=== PATIENT | female | born 1955 | race Caucasian/White ===

== ENCOUNTER 2017-11-30 10:15 | Emergency (ER) | payer BC ==
[~2017-11-30] VITALS: Ht 162.6 cm; Wt 54.9 kg
[~2017-11-30 10:15] MED LIST: COL100 PO; FLA500 PO; LAC PO; LEVOFLOXACIN500 M1 PO; PRI20 PO; SYNTHROID0.05 MG PO; ZOFRAN ODT4 MG SL
[2017-11-30 10:19] VITALS: Ht 162.6 cm; Wt 54.9 kg
[2017-11-30 11:25] LABS: CALCIUM 10.1 mg/dL (8.5-10.1); CARBON DIOXIDE 29.8 mmol/L (21-32); CHLORIDE SERUM 102 mmol/L (98-107); CREATININE SERUM 0.9 mg/dL (0.6-1.0); GFR1 > 60 mL/min; GLUCOSE SERUM 104 mg/dL (74-106); POTASSIUM SERUM 3.9 mmol/L (3.5-5.1); SODIUM SERUM 140 mmol/L (136-145)
[2017-11-30 11:27] LABS: BASOPHIL % 0.1 % (0-2); PLATELET COUNT 294 x10^3mcL (130-400)
[2017-11-30 11:29] LABS: ALKALINE PHOSPHATASE 58 U/L (46-116); ALT/SGPT 49 U/L (14-59); AST/SGOT 40 U/L (15-37); BILIRUBIN TOTAL 0.46 mg/dL (0.20-1.00); TOTAL PROTEIN, SERUM 7.7 g/dL (6.4-8.2)
[2017-11-30 12:02] LABS: RED CELL DISTRIBUTION WIDTH 15.5 % (11.5-14.5)
[2017-11-30 12:33] VITALS: BP 127/84
== END 2017-11-30 12:33 | disposition home or self-care (01) ==
LOC: ED 10:15
PROVIDERS: Emergency Medicine
DX: L03.119 Cellulitis of unspecified part of limb (principal)
CPT/HCPCS: 36415

== ENCOUNTER 2017-12-29 09:38 | Emergency (ER) | payer BC ==
[~2017-12-29] VITALS: Ht 162.6 cm; Wt 54.4 kg
[2017-12-29 09:47] VITALS: Ht 162.6 cm; Wt 54.4 kg
[2017-12-29 11:07] LABS: BASOPHIL % 0.3 % (0-2); PLATELET COUNT 272 x10^3mcL (130-400)
[2017-12-29 11:10] LABS: RED CELL DISTRIBUTION WIDTH 16.8 % (11.5-14.5)
[2017-12-29 11:14] LABS: CALCIUM 9.2 mg/dL (8.5-10.1); CARBON DIOXIDE 27.6 mmol/L (21-32); CHLORIDE SERUM 102 mmol/L (98-107); CREATININE SERUM 0.8 mg/dL (0.6-1.0); GFR1 > 60 mL/min; GLUCOSE SERUM 106 mg/dL (74-106); POTASSIUM SERUM 3.3 mmol/L (3.5-5.1); SODIUM SERUM 135 mmol/L (136-145)
[2017-12-29 11:19] LABS: ALBUMIN 4.1 g/dL (3.4-5.0); ALKALINE PHOSPHATASE 63 U/L (46-116); ALT/SGPT 46 U/L (14-59); AST/SGOT 34 U/L (15-37); BILIRUBIN TOTAL 0.4 mg/dL (0.20-1.00); MAGNESIUM 1.7 mg/dL (1.8-2.4); TOTAL PROTEIN, SERUM 7.8 g/dL (6.4-8.2)
[2017-12-29 11:45] VITALS: BP 141/90
== END 2017-12-29 11:45 | disposition home or self-care (01) ==
LOC: ED 09:38
PROVIDERS: Emergency Medicine
DX: T82.898A Other specified complication of vascular prosthetic devices, implants and grafts, initial encounter (principal); R31.9 Hematuria, unspecified
CPT/HCPCS: 36415

== ENCOUNTER 2019-06-29 04:26 | Emergency (ER) | payer OTHER, MEDICARE ==
[~2019-06-29] VITALS: Ht 162.6 cm; Wt 53.8 kg
[2019-06-29 04:50] VITALS: BP 106/76
== END 2019-06-29 04:50 | disposition home or self-care (01) ==
LOC: ED 04:26
DX: R21 Rash and other nonspecific skin eruption (principal); L29.9 Pruritus, unspecified; E03.9 Hypothyroidism, unspecified; Z85.048 Personal history of other malignant neoplasm of rectum, rectosigmoid junction, and anus

== ENCOUNTER 2019-07-06 13:36 | Inpatient (IN) | payer OTHER, MEDICARE ==
[~2019-07-06] VITALS: Ht 162.6 cm; Wt 52.3 kg
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
[2019-07-06 14:44] LABS: CALCIUM 9.4 mg/dL (8.5-10.1); CARBON DIOXIDE 31.4 mmol/L (21-32); CREATININE SERUM 1.1 mg/dL (0.6-1.0); POTASSIUM SERUM 3.9 mmol/L (3.5-5.1)
[2019-07-06 14:45] LABS: BASOPHIL % 0.3 % (0-2); PLATELET COUNT 276 x10^3mcL (130-400); RED CELL DISTRIBUTION WIDTH 13.4 % (11.5-14.5)
[2019-07-06 14:49] LABS: ALBUMIN 3.8 g/dL (3.4-5.0); BILIRUBIN TOTAL 0.6 mg/dL (0.20-1.00); TOTAL PROTEIN, SERUM 7.4 g/dL (6.4-8.2)
[2019-07-06 15:00] LABS: FREE T4 1.08 ng/dL (0.76-1.46); FREE THYROXINE INDEX 3.3 ug/dL (1.4-4.5); T4(THYROXINE) 8.8 ug/dL (4.7-13.3)
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
--- NOTE | 2019-07-06 15:56 | NUR ---
CORRECTION. 3RD AND 4TH DIGIT
[2019-07-06] MEDS ORDERED: TRAMADOL HCL50 MG PO (17:16)
[2019-07-06] MEDS ORDERED: AMBIEN10 MG PO (17:17)
[2019-07-06] MEDS ORDERED: LORAZEPAM0.5 MG PO (17:17)
[2019-07-06] MEDS ORDERED: SYNTHROID0.075 MG PO (17:19)
[2019-07-06] MEDS ORDERED: NATURE'S BLEND500 MG PO (17:20)
[2019-07-06] MEDS ORDERED: CRESTOR10 M1 PO (17:20)
[2019-07-06] MEDS ORDERED: OSTERA TABLET1 EACH PO (17:20)
--- NOTE | 2019-07-06 17:40 | NUR ---
REPORT GIVEN TO ANTONIO HUTCHINSON ON MS/T FOR FURTHER CARE OF PT
[2019-07-06 17:50] VITALS: BP 139/76
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
--- NOTE | 2019-07-06 18:01 | NUR ---
PT HAS DRESSING ON THE RIGHT 3RD-4TH FINGERS, CDI. PT STATED THAT SHE DOES NOT WANT THE DRESSING TO BE TOUCHED AT THIS TIME ER JUST APPLIED OINTMENT.
[2019-07-06 18:09] VITALS: BP 117/79
[2019-07-06 18:16] VITALS: Ht 162.6 cm; Wt 52.3 kg
--- NOTE | 2019-07-06 19:29 | NUR ---
LATE ENTRY, 1800: PATIENT VISUALIZED, IN NO ACUTE DISTRESS WILL CONTINUE TO MONITOR.
--- NOTE | 2019-07-06 19:35 | NUR ---
PT RECEIVED A/O X4, ABLE TO MAKE NEEDS KNOWN, SITTING UP IN BED AND WATCHING TV. TELE #18, HR-76, PT DENIES ANY CP/PRESSURE. PULSES PALPABLE, NO EDEMA PRESENT. BREATHING IS EVEN AND UNLABORED ON RA, NO RESP DISTRESS NOTED. ABD SOFT AND FLAT, BOWEL TONES ACTIVE X4 QUAD, COLOSTOMY IN PLACE TO LLQ, PINK STOMA NOTED, NO DRAINAGE OBSERVED. VOIDS FREELY, BRP. GENERALIZED WEAKNESS, AMBULATORY. SKIN IS WARM AND DRY, INTACT. PT DENIES HAVING ANY PAIN AT THIS TIME. IV TO LFA, PATENT AND INTACT, SITE WNL. NO ACUTE DISTRESS NOTED. BED IN LOWEST SETTING, SIDE RAILS UP X2, CALL LIGHT WITHIN REACH. WILL CONT TO MONITOR.
--- NOTE | 2019-07-06 19:38 | NUR ---
REPORT GIVEN TO WORKPLACE REHABILITATION OFFICER NURSE, CARE ENDORSED.
--- NOTE | 2019-07-06 19:42 | NUR ---
PT C/O ANXIETY, ATIVAN PO GIVEN ORDERED PER EMAR. NO ACUTE DISTRESS NOTED. WILL CONT TO MONITOR.
[2019-07-06 19:55] LABS: IRON 85 ug/dL (50-170); TOTAL IRON BINDING CAPACITY 254 ug/dL (250-450)
[2019-07-06 20:12] LABS: RED BLOOD CELLS 4.02 M/mm3 (4.10-5.10)
[2019-07-06 20:36] VITALS: BP 109/61
--- NOTE | 2019-07-07 01:00 | NUR ---
PT RESTING IN BED WITH EYES CLOSED, BUT IS EASILY AROUSABLE. BREATHING IS EVEN AND UNLABORED, NO RESP DISTRESS NOTED. PT DENIES HAS ANYTHING PAIN AT THIS TIME. IVF INFUSING WELL, SITE WNL. NO ACUTE DISTRESS NOTED. CALL LIGHT WITHIN REACH. WILL CONT TO MONITOR.
--- NOTE | 2019-07-07 05:20 | NUR ---
PT SLEPT WELL THROUGHOUT THE EVENING. BREATHING IS EVEN AND UNLABORED, NO RESP DISTRESS NOTED. PT DENIES HAVING ANY PAIN AT THIS TIME. PT PENDING CT CHEST, ABD+PELVIS. PER MALGORZATA IN CT, WILL BE ABLE TO DO CT IN THE AM. NO ACUTE CHANGES ENCOUNTERED DURING SHIFT. ALL NEEDS MET AND ANTICIPATED. CALL LIGHT WITHIN REACH. WILL ENDORSE CARE TO AM NURSE.
[2019-07-07 06:13] LABS: PLATELET COUNT 225 x10^3mcL (130-400); RED CELL DISTRIBUTION WIDTH 13.5 % (11.5-14.5)
[2019-07-07 06:20] LABS: CALCIUM 8.5 mg/dL (8.5-10.1); CARBON DIOXIDE 31.3 mmol/L (21-32); CHLORIDE SERUM 104 mmol/L (98-107); CREATININE SERUM 0.8 mg/dL (0.6-1.0); GFR1 > 60 mL/min; GLUCOSE SERUM 98 mg/dL (74-106); POTASSIUM SERUM 4.8 mmol/L (3.5-5.1); SODIUM SERUM 141 mmol/L (136-145)
[2019-07-07 06:26] VITALS: BP 91/50
--- NOTE | 2019-07-07 07:10 | NUR ---
RECEIVED PT FROM NIGHT NURSE. PT IS LAYING DOWN IN BED WITH HOB UP RESTING. PT LOOKS TO BE IN NO ACUTE DISTRESS AT THIS TIME AND DENIES ANY PAIN. IV SITE PATENT WITH NO SIGNS OF ERYTHEMA OR SWELLING. TELE MONITOR PRESENT. PT INFORMED PT BEING NPO FOR CT WITH CONTRAST, PT VERBALIZED UNDERSTANDING. CALL LIGHT WITHIN REACH. WILL CONTINUE TO MONITOR.
--- NOTE | 2019-07-07 07:35 | NUR ---
PT AWAITING CT SCAN WITH IV CONTRAST. SHEET METAL PRODUCTION WORKER MADE AWARE OF 20g IV ACCESS. PER TECH, WILL TELETYPEWRITER OPERATOR PT VIA WHEELCHAIR. INSTRUCTED PT TO REMAIN NPO UNTIL AFTER CT SCAN, PT VERBALIZES UNDERSTANDING; NPO SIGN POSTED. PT IN NO ACUTE DISTRESS. CONTINUITY OF CARE ENDORSED TO AM NURSE. ALL QUESTIONS AND CONCERNS ADDRESSED.
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
[2019-07-07 08:54] VITALS: BP 101/50
[2019-07-07 09:36] LABS: MONOCYTE 14 % (0-7); SEGMENTED NEUTROPHILS 66 % (37-75)
[2019-07-07 09:37] LABS: rbc morphology (normal/abnorm) NORMAL (NORMAL)
[2019-07-07 09:38] LABS: PLATELET MORPHOLOGY NORMAL
[2019-07-07 11:22] LABS: microscopic required? NO
[2019-07-07 11:31] LABS: T3 TOTAL 1.1 ng/mL
[2019-07-07 12:47] LABS: UA SPECIFIC GRAVITY 1.015 (1.005-1.035); urine erythrocyte NEGATIVE (NEGATIVE)
[2019-07-07 12:56] LABS: AMPHETAMINE QUAL UR NONE DETECTED (See below)
[2019-07-07 13:29] VITALS: BP 116/61
--- NOTE | 2019-07-07 15:11 | NUR ---
IV TO LEFT FOREARM IS SWOLLEN AND PT STATES IS PAINFUL WHEN BEING FLUSHED. NO ERYTHEMA NOTED TO IV SITE. PT HAS ADDITIONAL IV TO RIGHT FOREARM. WILL REMOVE IV
--- NOTE | 2019-07-07 15:12 | NUR ---
ECHO BEING PERFORMED AT BEDSIDE.
--- NOTE | 2019-07-07 16:00 | NUR ---
PT COMPLAINING OF RECTAL PAIN 06/02. PT REQUESTING TO HAVE TRAMADOL AT THIS TIME TO ASSIST WITH THE PAIN. WILL MEDICATE ACCORDING TO EMAR.
[2019-07-07 17:27] VITALS: BP 110/66
--- NOTE | 2019-07-07 18:57 | NUR ---
PT IS LAYING DOWN IN BED WITH HOB UP RESTING. PT LOOKS TO BE IN NO ACUTE DISTRESS AT THIS TIME AND DENIES ANY PAIN. RESPIRATIONS EVEN AND UNLABORED ON ROOM AIR. IV SITE PATENT WITH NO SIGNS OF ERYTHEMA OR SWELLING WITH IV FLUIDS INFUSING. COLOSTOMY TO LLQ. TELE MONITOR PRESENT SHOWING NSR. CALL LIGHT WITHIN REACH. WILL ENDORSE TO ONCOMING SHIFT.
--- NOTE | 2019-07-07 19:15 | NUR ---
PT RECEIVED A/O X4, ABLE TO MAKE NEEDS KNOWN, SITTING UP IN BED AND WATCHING TV. TELE #18, HR-79, PT DENIES ANY CP/PRESSURE. PT'S HR MAY INCREASE TO 102-140s WHEN AMBULATING, DR BANKS MADE AWARE BY AM NURSE. PULSES PALPABLE, NO EDEMA PRESENT. BREATHING IS EVEN AND UNLABORED ON RA, NO RESP DISTRESS NOTED. ABD SOFT AND FLAT, BOWEL TONES ACTIVE X4 QUAD, COLOSTOMY IN PLACE TO LLQ, PINK STOMA NOTED, NO DRAINAGE OBSERVED. VOIDS FREELY, BRP. GENERALIZED WEAKNESS, AMBULATORY. SKIN IS WARM AND DRY, INTACT. PT DENIES HAVING ANY PAIN AT THIS TIME. IV TO RFA, PATENT AND INTACT, SITE WNL. NO ACUTE DISTRESS NOTED. BED IN LOWEST SETTING, SIDE RAILS UP X2, CALL LIGHT WITHIN REACH. WILL CONT TO MONITOR.
[2019-07-07 20:18] VITALS: BP 91/57
--- NOTE | 2019-07-07 21:50 | NUR ---
FOLLOWED UP WITH [employer] MANAG[employer] SPECIALIST REGARDING PT'S CT CHEST, ABD+PELVIS WITH IV CONTRAST. PER TECH, CT WAS CANCELLED BY DR NOYOLA. UPDATED DR CANTU ABOUT CT, NO NEW ORDERS AT THIS TIME.
--- NOTE | 2019-07-08 01:30 | NUR ---
ROUNDS MADE. PT RESTING IN BED WITH EYES CLOSED, BUT IS EASILY AROUSABLE. BREATHING IS EVEN AND UNLABORED, NO RESP DISTRESS NOTED. NO S/S OF PAIN NOTED. NO ACUTE DISTRESS OBSERVED. IVF INFUSING WELL, SITE WNL. CALL LIGHT WITHIN REACH. WILL CONT TO MONITOR.
--- NOTE | 2019-07-08 05:16 | NUR ---
PT SLEPT WELL THROUGHOUT THE EVENING. NO ACUTE CHANGES ENCOUNTERED DURING SHIFT. ALL NEEDS MET AND ANTICIPATED. PT COMPLIANT WITH NURSING CARE. PT DENIES HAVING ANY PAIN AT THIS TIME. IV TO RFA INTACT. CALL LIGHT WITHIN REACH. WILL ENDORSE CARE TO AM NURSE.
[2019-07-08 06:21] LABS: PLATELET COUNT 188 x10^3mcL (130-400); RED CELL DISTRIBUTION WIDTH 13.9 % (11.5-14.5)
[2019-07-08 06:34] LABS: CALCIUM 8.1 mg/dL (8.5-10.1); CARBON DIOXIDE 28.8 mmol/L (21-32); CHLORIDE SERUM 108 mmol/L (98-107); CREATININE SERUM 0.8 mg/dL (0.6-1.0); GFR1 > 60 mL/min; GLUCOSE SERUM 87 mg/dL (74-106); MAGNESIUM 1.7 mg/dL (1.8-2.4); PHOSPHOROUS 2.7 mg/dL (2.5-4.9); POTASSIUM SERUM 4.6 mmol/L (3.5-5.1); SODIUM SERUM 142 mmol/L (136-145)
[2019-07-08 07:03] VITALS: BP 100/48
--- NOTE | 2019-07-08 07:42 | NUR ---
PT IN NO ACUTE DISTRESS. CONTINUITY OF CARE ENDORSED TO THERESE HUTCHINSON. ALL QUESTIONS AND CONCERNS ADDRESSED.
[2019-07-08 08:01] LABS: BAND NEUTROPHIL 0 % (0-10); MONOCYTE 36 % (0-7); SEGMENTED NEUTROPHILS 70 % (37-75)
[2019-07-08 08:04] LABS: rbc morphology (normal/abnorm) ABNORMAL (NORMAL)
[2019-07-08] MEDS ORDERED: ATIVAN2 MG PO (08:18)
[2019-07-08 08:42] VITALS: BP 109/40
--- NOTE | 2019-07-08 08:59 | NUR ---
RECEIVED PATIENT RESTING IN BED, WATCHING TV. NO ACUTE DISTRESS NOTED. PATIENT DENIES CHEST PAIN, PATIENT ON TELE MONITOR. PATIENT DENIES SOB, ON ROOM AIR. DENIES HEADACHE, AND DIZZINESS. COLOSTOMY NOTED TO LEFT UPPER QUADRANT, PINK STOMA NOTED. PATIENT AMBULATORY WITH NO ASSIST. NS IV INFUSING TO RFA AT 60ML/HR, IV SITE CDI & PATENT, NO S/S OF INFILTRATION. CALL LIGHT WITHIN REACH, BED IN LOW POSITION, WILL CONTINUE TO MONITOR.
--- NOTE | 2019-07-08 10:00 | NUR ---
DR. NOYOLA AWARE PATIENT MAG WAS 1.7, AND WBC WAS 2.9. NO FURTHER ORDERS AT THIS TIME, WILL CONTINUE TO MONITOR.
--- NOTE | 2019-07-08 11:15 | NUR ---
PER DR. JAZMÍN MANRIQUEZ TO REMOVE IV TO RFA, PATIENT WILL BE DISCHARGED AT 1200. IV REMOVED TO RFA, CATH INTACT. ALL NEEDS MET AT THIS TIME. WILL CONTINUE TO MONITOR PATIENT.
[2019-07-08 12:28] VITALS: BP 109/40
[2019-07-08 13:26] VITALS: BP 96/48
--- NOTE | 2019-07-08 14:10 | NUR ---
PATIENT WAS DISCHARGED HOME TODAY, PATIENT RECEIVED COPY OF D/C INSTRUCTIONS. PATIENT UNDERSTANDS & AGREES WITH D/C INSTRUCTIONS & PLAN OF CARE, INCLUDING FOLLOW UP WITH PCP & MEDICATIONS. ALL QUESTIONS AND CONCERNS ADDRESSED. PATIENT TOOK HOME ALL PERSONAL BELONGINGS. TELE MONITOR & ARMBAND REMOVED. NO IV ACCESS AT THIS TIME. PATIENT TAKEN DOWN VIA WHEELCHAIR, BY BOX PULLER.
== END 2019-07-08 14:10 | disposition home or self-care (01) | DRG 880 ==
LOC: ED 13:36 → DU 17:10
PROVIDERS: Emergency Medicine; Internal Medicine; ADMIT Family Medicine
DX: F41.9 Anxiety disorder, unspecified (principal); Z68.1 Body mass index [BMI] 19.9 or less, adult; N17.9 Acute kidney failure, unspecified; R00.0 Tachycardia, unspecified; E03.9 Hypothyroidism, unspecified; E86.0 Dehydration; Z93.3 Colostomy status; Z92.3 Personal history of irradiation; Z92.21 Personal history of antineoplastic chemotherapy; Z85.048 Personal history of other malignant neoplasm of rectum, rectosigmoid junction, and anus
CPT/HCPCS: 83880; 84439; 85378; 94150; G0378; J1644; J7030; J7620; Q9967

== ENCOUNTER 2020-02-29 15:59 | Emergency (ER) | payer OTHER, MEDICARE ==
[~2020-02-29] VITALS: Ht 170.2 cm; Wt 55.8 kg
[~2020-02-29 15:59] MED LIST changes: +AMBIEN10 MG PO; +ATIVAN2 MG PO; +CRESTOR10 M1 PO; +LORAZEPAM0.5 MG PO; +NATURE'S BLEND500 MG PO; +OSTERA TABLET1 EACH PO; +SYNTHROID0.075 MG PO; +TRAMADOL HCL50 MG PO
[2020-02-29 16:20] VITALS: Ht 170.2 cm; Wt 55.8 kg
[2020-02-29 18:28] LABS: BASOPHIL % 0.4 % (0-2); PLATELET COUNT 283 x10^3mcL (130-400)
[2020-02-29 18:31] LABS: RED CELL DISTRIBUTION WIDTH 14.9 % (11.5-14.5)
[2020-02-29 18:43] LABS: CALCIUM 9.4 mg/dL (8.5-10.1); CARBON DIOXIDE 28.3 mmol/L (21-32)
[2020-02-29 18:53] LABS: ALBUMIN 4.1 g/dL (3.4-5.0); BILIRUBIN TOTAL 0.4 mg/dL (0.20-1.00)
[2020-02-29 22:17] VITALS: BP 148/67
== END 2020-02-29 22:17 | disposition home or self-care (01) ==
LOC: ED 15:59
PROVIDERS: Emergency Medicine
DX: R10.30 Lower abdominal pain, unspecified (principal); E03.9 Hypothyroidism, unspecified; Z90.49 Acquired absence of other specified parts of digestive tract; Z85.048 Personal history of other malignant neoplasm of rectum, rectosigmoid junction, and anus; Z90.89 Acquired absence of other organs
CPT/HCPCS: 36415